=== PATIENT | female | born 1975 | race African-American/Black ===

== ENCOUNTER 2021-06-02 21:04 | Observation (INO) | payer OTHER ==
[2021-06-02] MEDS ORDERED: PANTOPRAZOLE 40 MG/10 ML VIAL IVP STA (21:28)
[2021-06-02] MEDS ORDERED: MORPHINE SULFATE 4 MG/ML SYRINGE IV STA (21:28)
--- NOTE | 2021-06-02 21:51 | XR ---
EXAMINATION TYPE: XR chest 1V portable DATE OF EXAM: 06/02/2021 9:43 PM COMPARISON:None TECHNIQUE: XR chest 1V portable Frontal view of the chest. CLINICAL INDICATION:Female, 46 years old with history of abdominal pain; FINDINGS: Lungs/Pleura: There is no evidence of pleural effusion, focal consolidation, or pneumothorax. Pulmonary vascularity: Unremarkable. Heart/mediastinum: Cardiomediastinal silhouette is unremarkable. Musculoskeletal: No acute osseous pathology. IMPRESSION: No acute cardiopulmonary disease/process.
--- NOTE | 2021-06-02 21:53 | XR ---
EXAMINATION TYPE: XR KUB DATE OF EXAM: 06/02/2021 9:43 PM INDICATION: Patient age:Female; 46 years old; Reason for study: abdominal pain; COMPARISON: None. TECHNIQUE: One radiographic view of the abdomen was obtained. FINDINGS: Multiple gas-filled loops of bowel; are seen throughout the abdomen. No convincing evidence for obstruction. There is stool seen within the rectum and sigmoid colon. Pelvic phleboliths are pre sent. Mild degenerative changes of the spine. IMPRESSION: Gas-filled loops of colon seen throughout abdomen are nonspecific.
[2021-06-02 22:15] LABS: Basophils % (A) 0 %; Eosinophils # (A) 0.3 k/uL (0-0.7); Eosinophils % (A) 3 %; HCT 35.1 % (34.0-46.0); HGB 11.4 gm/dL (11.4-16.0); Lymphocytes # (A) 1.9 k/uL (1.0-4.8); Lymphocytes % (A) 21 %; MCH 32.1 pg (25.0-35.0); MCHC 32.4 g/dL (31.0-37.0); MCV 98.8 fL (80.0-100.0); Mean Platelet Volume 7.8; Monocytes # (A) 0.5 k/uL (0-1.0); Monocytes % (A) 5 %; Neutrophils # (A) 6.1 k/uL (1.3-7.7); Neutrophils % (A) 68 %; Platelet Count 276 k/uL (150-450); RBC 3.55 m/uL (3.80-5.40); RDW 14.4 % (11.5-15.5)
[2021-06-02 22:17] LABS: Appearance,Urine Clear (Clear); Bilirubin,Urine Negative (Negative); Blood,Urine Negative (Negative); Color,Urine Yellow; Glucose,Urine (UA) Negative (Negative); Ketones,Urine Trace (Negative); Leukocyte Esterase,Urine Negative (Negative); Nitrite,Urine Negative (Negative); PH, Urine 8.5 (5.0-8.0); Protein,Urine Trace (Negative); Specific Gravity,Urine 1.029 (1.001-1.035); Urobilinogen,Urine <2.0 mg/dL (<2.0)
[2021-06-02 22:28] LABS: ALT 84 U/L (4-34); AST 47 U/L (14-36); African American GFR (CKD) >90 (>60 ml/min/1.73 sqM); Albumin 4.2 g/dL (3.5-5.0); Alcohol <10 mg/dL; Alkaline Phosphatase 80 U/L (38-126); Amylase 144 U/L (30-110); Anion Gap 7 mmol/L; Blood Urea Nitrogen 18 mg/dL (7-17); Calcium 11.4 mg/dL (8.4-10.2); Carbon Dioxide 31 mmol/L (22-30); Chloride 98 mmol/L (98-107); Glucose 79 mg/dL (74-99); Lipase 336 U/L (23-300); Non-African American GFR(CKD) >90 (>60 ml/min/1.73 sqM); Potassium 4.1 mmol/L (3.5-5.1); Sodium 136 mmol/L (137-145); Total Bilirubin 0.5 mg/dL (0.2-1.3); Total Protein 6.9 g/dL (6.3-8.2)
[2021-06-02] MEDS ORDERED: MORPHINE SULFATE 4 MG/ML SYRINGE IVP STA (22:40)
[2021-06-02 22:44] LABS: Prothrombin Time 10.6 sec (9.0-12.0)
[2021-06-02 22:50] LABS: Partial Thromboplastin Time 20.8 sec (22.0-30.0)
--- NOTE | 2021-06-02 23:29 | CT ---
EXAMINATION TYPE: CT abdomen pelvis w con DATE OF EXAM: 06/02/2021 COMPARISON: None HISTORY: abd disstenton CT DLP: 459.3 mGycm Automated exposure control for dose reduction was used. CONTRAST: Performed with IV Contrast, patient injected with 95 mL of Isovue 300. Images obtained from the diaphragm to the floor of the pelvis with IV contrast. There is some mild subsegmental atelectasis at the lung bases. Heart size is normal. There is no phyllis cardial effusion. There is no pleural effusion. Liver spleen appear intact. The bile ducts are not di lated. There is no evidence of pancreatic mass. Stomach is intact. There is no adrenal mass. Kidneys show satisfactory contrast opacification. There is no hydronephrosis. Ureters are not dilated. There is no retroperitoneal adenopathy. Bladder distends smoothly. There is retained fecal material in the large bowel. There is intramural air in the right colon. Larg e bowel is moderately dilated on the right side and the cecum measures 7.6 cm. Small bowel is not dil ated. There is no free air. Lumbar vertebrae have normal alignment. Posterior elements are intact. [place] pelvis is intact. The hip joints are intact. IMPRESSION: There is intramural air in the right colon which is somewhat dilated. Fluid level seen in the transve rse colon and descending colon. There is retained fecal material in the distal colon. The appearance is nonspecific and could relate to nonspecific colitis. There is no significant wall thickening or in traperitoneal fluid seen to suggest a serious condition such as ischemic colitis. Constipation.
[2021-06-02] MEDS ORDERED: SODIUM CHLORIDE 0.9% 1,000 ML IV STA (23:47)
--- NOTE | 2021-06-02 23:50 | ED ---
General Adult HPI - General Chief complaint: Abdominal Pain Stated complaint: Abdominal Pain Time Seen by Provider: 06/02/21 21:13 Source: patient, EMS, RN notes reviewed, old records reviewed Mode of arrival: EMS Limitations: no limitations - History of Present Illness Initial comments: Patient is a 46-year-old female with past medical history remarkable for alcohol abuse, presents emergency Department complaining of abdominal distention and pain that has been ongoing for the last week but worsened over the last 1-2 days. Endorses diarrhea that is nonbloody. Denies any nausea or vomiting. Endorses abdominal distention. Denies any chest pain, shortness of breath. Denies any urinary complaints at this time. States she is not . Pres ents over concern for abdominal discomfort as well as the diarrhea. She does state that the pain does seem to be focal around the epigastric region with some radiation straight through to her back.Denies any fevers, chills, sick contacts. - Related Data Home Medications Medication Instructions Recorded Confirmed Acetaminophen [Tylenol 8 Hour] 650 mg PO Q4H PRN 06/02/21 06/02/21 Budesonide/Formoterol Fumarate 1 puff INHALATION RT-BID 06/02/21 06/02/21 [Symbicort 160-4.5 Mcg Inhaler] Calc/Magne/Zinc/Vitam D 1 tab PO TID PRN 06/02/21 06/02/21 Chlorpheniramine Maleate 4 mg PO Q4H PRN 06/02/21 06/02/21 [Chlor-Trimeton] Divalproex [Depakote] 250 mg PO TID 06/02/21 06/02/21 Famotidine [Pepcid] 20 mg PO BID PRN 06/02/21 06/02/21 Fluticasone Nasal [place] [Flonase 1 spray EA NOSTRIL DAILY 06/02/21 06/02/21 Nasal [place]] Ibuprofen [Motrin Ib] 600 mg PO Q6H PRN 06/02/21 06/02/21 [place] Carbonate See Taper PO TID 06/02/21 06/02/21 Multivitamins, Thera [Multivitamin 1 tab PO DAILY 06/02/21 06/02/21 (formulary)] QUEtiapine [SEROquel] 25 mg PO BID@0800,1700 06/02/21 06/02/21 QUEtiapine [SEROquel] 50 mg PO HS 06/02/21 06/02/21 Thiamine HCl [Vitamin B-1] 100 mg PO DAILY 06/02/21 06/02/21 busPIRone HCl [Buspar] 10 mg PO TID 06/02/21 06/02/21 cloNIDine HCL [Catapres] 0.1 - 0.3 mg PO Q4H PRN MDD OVER 06/02/21 06/02/21 160/100 metFORMIN HCL 500 mg PO BID 06/02/21 06/02/21 ondansetron HCL [Zofran] 8 mg PO Q6H PRN 06/02/21 06/02/21 Allergies Allergy/AdvReac Type Severity Reaction Status Date / Time aspirin AdvReac Itching Verified 06/02/21 21:25 Review of Systems ROS Statement: Those systems with pertinent positive or pertinent negative responses have been documented in the HPI. Review of Systems: CONST: Denies fever EYES: Denies blurry vision ENT: Denies nasal congestion C/V: Denies Chest pain RESP: Denies shortness of breath GI: Endorses abdominal pain : Denies dysuria SKIN: Denies rash. MSK: Denies joint pain. NEURO: Denies headache ROS Other: All systems not noted in ROS Statement are negative. Past Medical History Past Medical History: Asthma, Diabetes Mellitus, Liver Disease, Renal Disease Past Surgical History: Hysterectomy Smoking Status: Never smoker Past Alcohol Use History: Daily Past Drug Use History: Cocaine, Marijuana General Exam - General Exam Comments Initial Comments: General: Appears in no acute distress. HEAD: Normal with no signs of head trauma. EYES: PERRLA, EOMI, conjunctiva normal, no discharge. ENT: Hearing grossly intact, normal oropharynx. RESPIRATORY: Clear breath sounds bilaterally. No wheezes, rales, or rhonchi. C/V: Regular rate and rhythm. S1 and S2 auscultated, no edema, peripheral pulses 2+ and intact throughout ABD: Abdomen soft, mildly distended. Patient is tender to palpation diffusely, primarily over the epigastric region. No rebound tenderness. No guarding. EXT: Normal range of motion, no obvious deformity SKIN: No rashes or lesions observed on exposed skin. NEURO: Alert and oriented 4. Limitations: no limitations Course Vital Signs 06/02/21 06/02/21 21:08 23:30 Temperature 98.1 F Pulse Rate 67 79 Respiratory 18 18 Rate Blood Pressure 103/75 120/81 O2 Sat by Pulse 100 99 Oximetry Medical Decision Making - Medical Decision Making Based on the patient's presentation and physical exam, I'm concerned for acute abdominal process for the patient. We will obtain abdominal laboratory studies as well as the chest x-ray and KUB x-ray. Patient was in agreement this plan. She'll be given symptomatic treatment with IV fluids as well as IV analgesia. Laboratory studies are remarkable for what appears to be acute pancreatitis with mildly elevated amylase and lipase of 144 and 336. Urinalysis is unremarkable. Lactate is wnl. The remainder of the labs are unremarkable. X-rays reveal gas- filled colon seen throughout the abdomen that are nonspecific as well as no acute cardiopulmonary process on chest x-ray. On reevaluation, patient is feeling slightly improved, however still complaining of abdominal pain. She'll be given additional analgesia, as well as started on insulin drip. Patient was in agreement this plan. CT imaging revealed findings consistent with colitis. No findings to suggest a serious condition such as ischemic colitis. On reevaluation, I discussed with her that appear she has acute pain as well as colitis. I believe it is best to admit her to the hospital for IV fluids and analgesia. She was in agreement this plan. Spoke with the admitting physician, Dr. Rich [facility] accept the patient. Patient w as therefore admitted in stable condition. Per Dr. Rich, patient will be started on IV cipro/flagyl and Dr. Rodriguez will be consulted of ID for colitis. - Lab Data Result diagrams: 06/02/21 21:55 06/02/21 21:55 Lab Results 06/02/21 06/02/21 06/02/21 Range/Units 21:55 21:55 21:55 WBC 9.0 (3.8-10.6) k/uL RBC 3.55 L (3.80-5.40) m/uL Hgb 11.4 (11.4-16.0) gm/dL Hct 35.1 (34.0-46.0) % MCV 98.8 (80.0-100.0) fL MCH 32.1 (25.0-35.0) pg MCHC 32.4 (31.0-37.0) g/dL RDW 14.4 (11.5-15.5) % Plt Count 276 (150-450) k/uL MPV 7.8 Neutrophils % 68 % Lymphocytes % 21 % Monocytes % 5 % Eosinophils % 3 % Basophils % 0 % Neutrophils # 6.1 (1.3-7.7) k/uL Lymphocytes # 1.9 (1.0-4.8) k/uL Monocytes # 0.5 (0-1.0) k/uL Eosinophils # 0.3 (0-0.7) k/uL Basophils # 0.0 (0-0.2) k/uL PT 10.6 (9.0-12.0) sec INR 1.0 (<1.2) APTT 20.8 L (22.0-30.0) sec Sodium (137-145) mmol/L Potassium (3.5-5.1) mmol/L Chloride (98-107) mmol/L Carbon Dioxide (22-30) mmol/L Anion Gap mmol/L BUN (7-17) mg/dL Creatinine (0.52-1.04) mg/dL Est GFR (CKD-EPI)AfAm (>60 ml/min/1.73 sqM) Est GFR (CKD-EPI)NonAf (>60 ml/min/1.73 sqM) Glucose (74-99) mg/dL Plasma Lactic Acid Federico (0.7-2.0) mmol/L Calcium (8.4-10.2) mg/dL Total Bilirubin (0.2-1.3) mg/dL AST (14-36) U/L ALT (4-34) U/L Alkaline Phosphatase (38-126) U/L Total Protein (6.3-8.2) g/dL Albumin (3.5-5.0) g/dL Amylase (30-110) U/L Lipase (23-300) U/L Urine Color Yellow Urine Appearance Clear (Clear) Urine pH 8.5 H (5.0-8.0) Ur Specific [place] 1.029 (1.001-1.035) Urine Protein Trace H (Negative) Urine Glucose (UA) Negative (Negative) Urine Ketones Trace H (Negative) Urine Blood Negative (Negative) Urine Nitrite Negative (Negative) Urine Bilirubin Negative (Negative) Urine Urobilinogen <2.0 (<2.0) mg/dL Ur Leukocyte Esterase Negative (Negative) Serum Alcohol mg/dL 06/02/21 06/02/21 Range/Units 21:55 21:55 WBC (3.8-10.6) k/uL RBC (3.80-5.40) m/uL Hgb (11.4-16.0) gm/dL Hct (34.0-46.0) % MCV (80.0-100.0) fL MCH (25.0-35.0) pg MCHC (31.0-37.0) g/dL RDW (11.5-15.5) % Plt Count (150-450) k/uL MPV Neutrophils % % Lymphocytes % % Monocytes % % Eosinophils % % Basophils % % Neutrophils # (1.3-7.7) k/uL Lymphocytes # (1.0-4.8) k/uL Monocytes # (0-1.0) k/uL Eosinophils # (0-0.7) k/uL Basophils # (0-0.2) k/uL PT (9.0-12.0) sec INR (<1.2) APTT (22.0-30.0) sec Sodium 136 L (137-145) mmol/L Potassium 4.1 (3.5-5.1) mmol/L Chloride 98 (98-107) mmol/L Carbon Dioxide 31 H (22-30) mmol/L Anion Gap 7 mmol/L BUN 18 H (7-17) mg/dL Creatinine 0.67 (0.52-1.04) mg/dL Est GFR (CKD-EPI)AfAm >90 (>60 ml/min/1.73 sqM) Est GFR (CKD-EPI)NonAf >90 (>60 ml/min/1.73 sqM) Glucose 79 (74-99) mg/dL Plasma Lactic Acid [place] 1.9 (0.7-2.0) mmol/L Calcium 11.4 H (8.4-10.2) mg/dL Total Bilirubin 0.5 (0.2-1.3) mg/dL AST 47 H (14-36) U/L ALT 84 H (4-34) U/L Alkaline Phosphatase 80 (38-126) U/L Total Protein 6.9 (6.3-8.2) g/dL Albumin 4.2 (3.5-5.0) g/dL Amylase 144 H (30-110) U/L Lipase 336 H (23-300) U/L Urine Color Urine Appearance (Clear) Urine pH (5.0-8.0) Ur Specific [place] (1.001-1.035) Urine Protein (Negative) Urine Glucose (UA) (Negative) Urine Ketones (Negative) Urine Blood (Negative) Urine Nitrite (Negative) Urine Bilirubin (Negative) Urine Urobilinogen (<2.0) mg/dL Ur Leukocyte Esterase (Negative) Serum Alcohol <10 mg/dL Disposition Clinical Impression: Acute pancreatitis, Colitis Disposition: ADMITTED IP TO THIS [facility] Condition: Stable Referrals: Nonstaff,Physician [Primary Care Provider] - 1-2 days
[2021-06-02] MEDS ORDERED: ONDANSETRON 4 MG/2 ML VIAL IVP PRN (23:57)
[2021-06-02] MEDS ORDERED: NALOXONE 0.4 MG/ML 1 ML VIAL IV PRN (23:57)
[2021-06-03] MEDS: metroNIDAZOLE-NS PMX 500 MG in SALINE 1 100ML.BAG IVPB SCH ×2 (00:50→08:26)
[2021-06-03] MEDS ORDERED: LEVOFLOXACIN 250MG-D5W PMX 250 MG in DEXTROSE/WATER 1 50ML.BAG IVPB SCH (01:00)
[2021-06-03 07:33] LABS: Basophils # (A) 0.1 k/uL (0-0.2); Basophils % (A) 1 %; Eosinophils # (A) 0.3 k/uL (0-0.7); Eosinophils % (A) 3 %; HGB 11.6 gm/dL (11.4-16.0); Lymphocytes # (A) 1.3 k/uL (1.0-4.8); Lymphocytes % (A) 15 %; MCHC 31.4 g/dL (31.0-37.0); MCV 102.1 fL (80.0-100.0); Macrocytosis Slight; Mean Platelet Volume 8.2; Monocytes # (A) 0.5 k/uL (0-1.0); Monocytes % (A) 5 %; Neutrophils # (A) 6.5 k/uL (1.3-7.7); Neutrophils % (A) 75 %; Platelet Count 283 k/uL (150-450); RBC 3.62 m/uL (3.80-5.40); RDW 14.3 % (11.5-15.5); WBC 8.6 k/uL (3.8-10.6)
[2021-06-03 07:51] LABS: ALT 76 U/L (4-34); AST 41 U/L (14-36); African American GFR (CKD) >90 (>60 ml/min/1.73 sqM); Albumin 3.8 g/dL (3.5-5.0); Alkaline Phosphatase 69 U/L (38-126); Anion Gap 3 mmol/L; Blood Urea Nitrogen 11 mg/dL (7-17); Calcium 10.2 mg/dL (8.4-10.2); Carbon Dioxide 31 mmol/L (22-30); Chloride 100 mmol/L (98-107); Glucose 75 mg/dL (74-99); Non-African American GFR(CKD) >90 (>60 ml/min/1.73 sqM); Sodium 134 mmol/L (137-145); Total Bilirubin 0.6 mg/dL (0.2-1.3); Total Protein 6.5 g/dL (6.3-8.2)
[2021-06-03 07:58] VITALS: BP 91/57; PULSE 64; RESP 16; TEMP 97.8
[2021-06-03] MEDS ORDERED: QUEtiapine 25 MG TAB PO SCH (08:00)
[2021-06-03] MEDS ORDERED: SYMBICORT 160-4.5 MCG INHALER INHALATION SCH (08:00)
[2021-06-03 08:06] LABS: Glucose,Whole Blood 88 mg/dL (75-99)
[2021-06-03] MEDS ORDERED: KETOROLAC 15 MG/ML 1 ML VIAL IVP PRN (08:39)
[2021-06-03] MEDS ORDERED: metFORMIN 500 MG TAB PO SCH (09:00)
[2021-06-03] MEDS ORDERED: THIAMINE 100 MG TAB PO SCH (09:00)
[2021-06-03] MEDS ORDERED: FAMOTIDINE 20 MG TAB PO PRN (09:00)
[2021-06-03] MEDS ORDERED: DIVALPROEX 250 MG TABLET.DR PO SCH (09:00)
[2021-06-03] MEDS ORDERED: busPIRone HCl 10 MG TAB PO SCH (09:00)
[2021-06-03 12:01] LABS: Glucose,Whole Blood 96 mg/dL (75-99)
[2021-06-03] MEDS ORDERED: ACETAMINOPHEN TAB 325 MG TAB PO PRN (13:35)
[2021-06-03] MEDS ORDERED: PANTOPRAZOLE 40 MG/10 ML VIAL IVP SCH (13:45)
--- NOTE | 2021-06-03 17:12 | P.HPIM ---
History of Present Illness Patient was on-year-old female with alcohol abuse was sent in from [facility] facility for epigastric abdominal pain. Patient lipase is minimally elevated to around 350 because of which patient is admitted with concerns of pancreatitis. Patient's pain completely resolved and patient is able to tolerate liquid diet well and I'm advancing the diet today. Patient does have mildly elevated liver enzymes seconded to alcoholism. Patient denied any IV drug use in the past. Hepatocellular was ordered but results will not be available before her discharge. His symptoms improved she is tolerating diet patient will be discharged today. REVIEW OF SYSTEMS: CONSTITUTIONAL: No fever, no malaise, no fatigue. HEENT: No recent visual problems or hearing problems. Denied any sore throat. CARDIOVASCULAR: No chest pain, orthopnea, PND, no palpitations, no syncope. PULMONARY: No shortness of breath, no cough, no hemoptysis. GASTROINTESTINAL: As mentioned in HPI NEUROLOGICAL: No headaches, no weakness, no numbness. HEMATOLOGICAL: Denies any bleeding or petechiae. GENITOURINARY: Denies any burning micturition, frequency, or urgency. MUSCULOSKELETAL/RHEUMATOLOGICAL: Denies any joint pain, swelling, or any muscle pain. ENDOCRINE: Denies any polyuria or polydipsia. The rest of the 14-point review of systems is negative. PHYSICAL EXAMINATION: GENERAL: The patient is alert and oriented x3, not in any acute distress. Well developed, well nourished. HEENT: Pupils are round and equally reacting to light. EOMI. No scleral icterus. No conjunctival pallor. Normocephalic, atraumatic. No pharyngeal erythema. No thyromegaly. CARDIOVASCULAR: S1 and S2 present. No murmurs, rubs, or gallops. PULMONARY: Chest is clear to auscultation, no wheezing or crackles. ABDOMEN: Soft, nontender, nondistended, normoactive bowel sounds. No palpable organomegaly. MUSCULOSKELETAL: No joint swelling or deformity. EXTREMITIES: No cyanosis, clubbing, or pedal edema. NEUROLOGICAL: Gross neurological examination did not reveal any focal deficits. SKIN: No rashes. Assessment and plan -Epigastric abdominal pain probably seconded alcoholic gastritis and lipase is not having to sit an keratitis and the CT of the abdomen is not consistent with an keratitis clinically patient doesn't have any evidence of colitis although there was suspicion on the computed tomography scan. Patient did have a bowel movement. Patient was constipated yesterday. Patient was taking nonsteroidal anti-disorder medications at home this will be discontinued. If needed if patient can use either tramadol or [place] -Transaminitis: Liver enzymes are minimally elevated. Patient is on Depakote. Patient has highly ALT than AST this can be drug induced. Since is only minimally elevated disease and would repeat the liver enzymes as an outpatient before discontinuing any of her medications. -Type 2 diabetes mellitus -history of cocaine abuse and marijuana use in the past -Alcohol abuse patient is presently in rehabilitation Patient is being discharged today Past Medical History Past Medical History: Asthma, Diabetes Mellitus, Liver Disease, Renal Disease History of Any Multi-Drug Resistant Organisms: None Reported Past Surgical History: Hysterectomy Smoking Status: Never smoker Past Alcohol Use History: Daily Past Drug Use History: Cocaine, Marijuana Medications and Allergies Home Medications Medication Instructions Recorded Confirmed Type Acetaminophen [Tylenol 8 Hour] 650 mg PO Q4H PRN 06/02/21 06/02/21 History Budesonide/Formoterol Fumarate 1 puff INHALATION RT-BID 06/02/21 06/02/21 History [Symbicort 160-4.5 Mcg Inhaler] Calc/Magne/Zinc/Vitam D 1 tab PO TID PRN 06/02/21 06/02/21 History Chlorpheniramine Maleate 4 mg PO Q4H PRN 06/02/21 06/02/21 History [Chlor-Trimeton] Divalproex [Depakote] 250 mg PO TID 06/02/21 06/02/21 History Fluticasone Nasal [place] [Flonase 1 spray EA NOSTRIL DAILY 06/02/21 06/02/21 History Nasal [place]] [place] Carbonate See Taper PO TID 06/02/21 06/02/21 History Multivitamins, Thera [Multivitamin 1 tab PO DAILY 06/02/21 06/02/21 History (formulary)] QUEtiapine [SEROquel] 25 mg PO BID@0800,1700 06/02/21 06/02/21 History QUEtiapine [SEROquel] 50 mg PO HS 06/02/21 06/02/21 History Thiamine HCl [Vitamin B-1] 100 mg PO DAILY 06/02/21 06/02/21 History busPIRone HCl [Buspar] 10 mg PO TID 06/02/21 06/02/21 History metFORMIN HCL 500 mg PO BID 06/02/21 06/02/21 History ondansetron HCL [Zofran] 8 mg PO Q6H PRN 06/02/21 06/02/21 History Pantoprazole [Protonix] 40 mg PO DAILY #14 tab 06/03/21 Rx Allergies Allergy/AdvReac Type Severity Reaction Status Date / Time aspirin AdvReac Itching Verified 06/02/21 21:25 Physical Exam Vitals: Vital Signs Temp Pulse Pulse Resp BP BP Pulse Ox 06/03/21 08:00 64 16 06/03/21 07:00 97.8 F 64 16 91/57 100 06/03/21 03: 98.5 F 69 18 94/55 98 06/03/21 01:43 60 18 138/65 98 06/02/21 23:30 79 18 120/81 99 06/02/21 21:08 98.1 F 67 18 103/75 100 Intake and Output 06/03/21 06/03/21 06/03/21 06:59 14:59 22:59 Intake Total 490 Balance 490 Intake: Oral 490 Other: Voiding Method Toilet # Voids 2 Weight 43.091 kg Results CBC & Chem 7: 06/03/21 06:54 06/03/21 06:54 Labs: Abnormal Lab Results - Last 24 Hours (Table) 06/02/21 06/02/21 06/02/21 Range/Units 21:55 21:55 21:55 RBC 3.55 L (3.80-5.40) m/uL MCV (80.0-100.0) fL APTT 20.8 L (22.0-30.0) sec Sodium (137-145) mmol/L Carbon Dioxide (22-30) mmol/L BUN (7-17) mg/dL Calcium (8.4-10.2) mg/dL AST (14-36) U/L ALT (4-34) U/L Amylase (30-110) U/L Lipase (23-300) U/L Urine pH 8.5 H (5.0-8.0) Urine Protein Trace H (Negative) Urine Ketones Trace H (Negative) 06/02/21 06/03/21 06/03/21 Range/Units 21:55 06:54 06:54 RBC 3.62 L (3.80-5.40) m/uL MCV 102.1 H (80.0-100.0) fL APTT (22.0-30.0) sec Sodium 136 L 134 L (137-145) mmol/L Carbon Dioxide 31 H 31 H (22-30) mmol/L BUN 18 H (7-17) mg/dL Calcium 11.4 H (8.4-10.2) mg/dL AST 47 H 41 H (14-36) U/L ALT 84 H 76 H (4-34) U/L Amylase 144 H (30-110) U/L Lipase 336 H (23-300) U/L Urine pH (5.0-8.0) Urine Protein (Negative) Urine Ketones (Negative) Thrombosis Risk Factor Assmnt - Choose All That Apply Any of the Below Risk Factors Present?: Yes Each Factor Represents 1 point: Age 41-60 years Other Risk Factors: No Other congenital or acquired thrombophilia - If yes, enter type in comment: No Thrombosis Risk Factor Assessment Total Risk Factor Score: 1 Thrombosis Risk Factor Assessment Level: Low Risk
--- NOTE | 2021-06-03 17:12 | P.DS ---
Providers Date of admission: 06/02/21 23:57 Attending physician: Natalee Rich Consults: 06/02/21 23:57 Consult Physician Routine Consulting Provider: Joey Rodriguez Consult Reason/Comments: colitis Do you want consulting provider notified?: Yes Primary care physician: Physician Nonstaff Hospital Course: Please refer to history of present illness for further details Patient Condition at Discharge: Stable Plan - Discharge Summary Discharge Rx Participant: Yes New Discharge Prescriptions: New Pantoprazole [Protonix] 40 mg PO DAILY #14 tab Discontinued Famotidine [Pepcid] 20 mg PO BID PRN PRN Reason: Heartburn Ibuprofen [Motrin Ib] 600 mg PO Q6H PRN PRN Reason: Pain cloNIDine HCL [Catapres] 0.1 - 0.3 mg PO Q4H PRN MDD OVER 160/100 PRN Reason: Blood Pressure - High No Action QUEtiapine [SEROquel] 50 mg PO HS metFORMIN HCL 500 mg PO BID Fluticasone Nasal [place] [Flonase Nasal [place]] 1 spray EA NOSTRIL DAILY ondansetron HCL [Zofran] 8 mg PO Q6H PRN PRN Reason: Nausea Thiamine HCl [Vitamin B-1] 100 mg PO DAILY Acetaminophen [Tylenol 8 Hour] 650 mg PO Q4H PRN PRN Reason: Pain Multivitamins, Thera [Multivitamin (formulary)] 1 tab PO DAILY busPIRone HCl [Buspar] 10 mg PO TID Calc/Magne/Zinc/Vitam D 1 tab PO TID PRN PRN Reason: cramps QUEtiapine [SEROquel] 25 mg PO BID@0800,1700 Budesonide/Formoterol Fumarate [Symbicort 160-4.5 Mcg Inhaler] 1 puff INHALATION RT-BID [place] Carbonate See Taper PO TID Divalproex [Depakote] 250 mg PO TID Chlorpheniramine Maleate [Chlor-Trimeton] 4 mg PO Q4H PRN PRN Reason: Allergy Symptoms Discharge Medication List Acetaminophen [Tylenol 8 Hour] 650 mg PO Q4H PRN 06/02/21 [History] Budesonide/Formoterol Fumarate [Symbicort 160-4.5 Mcg Inhaler] 1 puff INHALATION RT-BID 06/02/21 [History] Calc/Magne/Zinc/Vitam D 1 tab PO TID PRN 06/02/21 [History] Chlorpheniramine Maleate [Chlor-Trimeton] 4 mg PO Q4H PRN 06/02/21 [History] Divalproex [Depakote] 250 mg PO TID 06/02/21 [History] Fluticasone Nasal [place] [Flonase Nasal [place]] 1 spray EA NOSTRIL DAILY 06/02/21 [History] [place] Carbonate See Taper PO TID 06/02/21 [History] Multivitamins, Thera [Multivitamin (formulary)] 1 tab PO DAILY 06/02/21 [Hist ory] QUEtiapine [SEROquel] 25 mg PO BID@0800,1700 06/02/21 [History] QUEtiapine [SEROquel] 50 mg PO HS 06/02/21 [History] Thiamine HCl [Vitamin B-1] 100 mg PO DAILY 06/02/21 [History] busPIRone HCl [Buspar] 10 mg PO TID 06/02/21 [History] metFORMIN HCL 500 mg PO BID 06/02/21 [History] ondansetron HCL [Zofran] 8 mg PO Q6H PRN 06/02/21 [History] Pantoprazole [Protonix] 40 mg PO DAILY #14 tab 06/03/21 [Rx] Follow up Appointment(s)/Referral(s): Nonstaff,Physician [Primary Care Provider] - 1-2 days Discharge Disposition: OTHER INSTITUTION NOT DEFINED
[2021-06-03 19:14] LABS: Hepatitis A Antibody IgM Nonreactive (Nonreactive); Hepatitis B Core IgM Nonreactive (Nonreactive); Hepatitis B Surface Antigen Nonreactive (Nonreactive); Hepatitis C IgG Antibody Nonreactive (Nonreactive)
[2021-06-03] MEDS ORDERED: QUEtiapine 50 MG TAB PO SCH (21:00)
--- NOTE | 2021-06-10 22:58 | P.CONS ---
History of Present Illness - Reason for Consult Consult date: 06/03/21 Colitis Requesting physician: Rachel Mishra - Chief Complaint Abdominal pain and diarrhea x few days - History of Present Illness Patient is a 46-year-old -[place] female with a past medical history sniffing for alcohol abuse patient presented to [facility] ER complaining of abdominal distention and pain that has been going on for about a week however has gotten worse for the last 1 to 2 days patient describes the pain to be more of a dull aching to sharp 6-7 out of 10 head no radiation patient complains of some nausea but no vomiting and did have some diarrhea but no blood or mucus in the stools with the symptoms the patient was evaluated by the ER physician on arrival to the ER patient was afebrile and no fever have been recorded subsequently patient did have a normal white count with no left shift kidney function has been normal liver enzymes are elevated amylase lipase was mildly elevated urine was negative blood culture obtained which are currently pending patient did have a CT of abdominal pelvis with evidence of fluid level in the transverse colon and descending colon appearance is nonspecific and could relate to nonspecific colitis patient was admitted to the hospital has been started on Levaquin and Flagyl infectious disease was consulted for further management of antibiotic therapy and there was no evidence of pancreatitis on the CT patient seem to be feeling better and wants to go home Review of Systems Positive point has been mentioned in the HPI rest of the systems are negative Past Medical History Past Medical History: Asthma, Diabetes Mellitus, Liver Disease, Renal Disease History of Any Multi-Drug Resistant Organisms: None Reported Past Surgical History: Hysterectomy Smoking Status: Never smoker Past Alcohol Use History: Daily Past Drug Use History: Cocaine, Marijuana Medications and Allergies Home Medications Medication Instructions Recorded Confirmed Type Acetaminophen [Tylenol 8 Hour] 650 mg PO Q4H PRN 06/02/21 06/02/21 History Budesonide/Formoterol Fumarate 1 puff INHALATION RT-BID 06/02/21 06/02/21 History [Symbicort 160-4.5 Mcg Inhaler] Calc/Magne/Zinc/Vitam D 1 tab PO TID PRN 06/02/21 06/02/21 History Chlorpheniramine Maleate 4 mg PO Q4H PRN 06/02/21 06/02/21 History [Chlor-Trimeton] Divalproex [Depakote] 250 mg PO TID 06/02/21 06/02/21 History Fluticasone Nasal [place] [Flonase 1 spray EA NOSTRIL DAILY 06/02/21 06/02/21 His tory Nasal [place]] [place] Carbonate See Taper PO TID 06/02/21 06/02/21 History Multivitamins, Thera [Multivitamin 1 tab PO DAILY 06/02/21 06/02/21 History (formulary)] QUEtiapine [SEROquel] 25 mg PO BID@0800,1700 06/02/21 06/02/21 History QUEtiapine [SEROquel] 50 mg PO HS 06/02/21 06/02/21 History Thiamine HCl [Vitamin B-1] 100 mg PO DAILY 06/02/21 06/02/21 History busPIRone HCl [Buspar] 10 mg PO TID 06/02/21 06/02/21 History metFORMIN HCL 500 mg PO BID 06/02/21 06/02/21 History ondansetron HCL [Zofran] 8 mg PO Q6H PRN 06/02/21 06/02/21 History Pantoprazole [Protonix] 40 mg PO DAILY #14 tab 06/03/21 Rx Allergies Allergy/AdvReac Type Severity Reaction Status Date / Time aspirin AdvReac Itching Verified 06/02/21 21:25 Physical Exam Vitals: Vital Signs Temp Pulse Pulse Resp BP BP Pulse Ox 06/03/21 08:00 64 16 06/03/21 07:00 97.8 F 64 16 91/57 100 06/03/21 03:23 98.5 F 69 18 94/55 98 06/03/21 01:43 60 18 138/65 98 06/02/21 23:30 79 18 120/81 99 06/02/21 21:08 98.1 F 67 18 103/75 100 Intake and Output 06/02/21 06/03/21 06/03/21 22:59 06:59 14:59 Intake Total 90 Balance 90 Intake: Oral 90 Other: Voiding Method Toilet # Voids 2 Weight 43.091 kg 43.091 kg GENERAL DESCRIPTION: Middle-aged female lying in bed, no distress. No tachypnea or accessory muscle of respiration use. HEENT: Shows Pallor , no scleral icterus. Oral mucous membrane is dry. No pharyngeal erythema or thrush NECK: Trachea central, no thyromegaly. LUNGS: Unlabored breathing. Clear to auscultation anteriorly. No wheeze or crackle. HEART: S1, S2, regular rate and rhythm. No loud murmur ABDOMEN: Soft, mild abdominal distention and tenderness , EXTREMITIES: No edema of feet. SKIN: No rash, no masses palpable. NEUROLOGICAL: The patient is awake, alert, oriented x3, mood and affect normal. Results CBC & Chem 7: 06/03/21 06:54 06/03/21 06:54 Labs: Abnormal Lab Results - Last 24 Hours (Table) 06/02/21 06/02/21 06/02/21 Range/Units 21:55 21:55 21:55 RBC 3.55 L (3.80-5.40) m/uL MCV (80.0-100.0) fL APTT 20.8 L (22.0-30.0) sec Sodium (137-145) mmol/L Carbon Dioxide (22-30) mmol/L BUN (7-17) mg/dL Calcium (8.4-10.2) mg/dL AST (14-36) U/L ALT (4-34) U/L Amylase (30-110) U/L Lipase (23-300) U/L Urine pH 8.5 H (5.0-8.0) Urine Protein Trace H (Negative) Urine Ketones Trace H (Negative) 06/02/21 06/03/21 06/03/21 Range/Units 21:55 06:54 06:54 RBC 3.62 L (3.80-5.40) m/uL MCV 102.1 H (80.0-100.0) fL APTT (22.0-30.0) sec Sodium 136 L 134 L (137-145) mmol/L Carbon Dioxide 31 H 31 H (22-30) mmol/L BUN 18 H (7-17) mg/dL Calcium 11.4 H (8.4-10.2) mg/dL AST 47 H 41 H (14-36) U/L ALT 84 H 76 H (4-34) U/L Amylase 144 H (30-110) U/L Lipase 336 H (23-300) U/L Urine pH (5.0-8.0) Urine Protein (Negative) Urine Ketones (Negative) Assessment and Plan Plan: 1patient presented to hospital with abdominal distention and diarrhea which is likely multifactorial in this patient who do have a history of significant alcohol drinking or drinks more than 1/5 a day, patient was complaining of some diarrhea CT finding has been nonspecific patient did not have any fever and a normal white count remained colitis to be less likely but not entirely excluded. 2we will obtain stool studies and stool for C. difficile. 3continue with empiric Levaquin and Flagyl while waiting for the cultures to be finalized. 4gentle IV fluids We will follow on clinical condition and cultures to further adjust medication if needed Thank you for this consultation will follow this patient along with you Time with Patient: Greater than 30
== END 2021-06-03 15:18 | disposition other institution (70) ==
LOC: EC 21:04 → 6NMEDSUR 23:57
PROVIDERS: ADMIT Hospitalist; ATTEND Hospitalist
DX: R10.13 Epigastric pain (principal); K59.00 Constipation, unspecified; R19.7 Diarrhea, unspecified; R11.0 Nausea; R14.0 Abdominal distension (gaseous); R94.8 Abnormal results of function studies of other organs and systems; R74.01 Elevation of levels of liver transaminase levels; E11.9 Type 2 diabetes mellitus without complications; F10.20 Alcohol dependence, uncomplicated; F14.10 Cocaine abuse, uncomplicated; J45.909 Unspecified asthma, uncomplicated; K76.9 Liver disease, unspecified; N28.9 Disorder of kidney and ureter, unspecified; Z79.51 Long term (current) use of inhaled steroids; Z79.899 Other long term (current) drug therapy; Z79.84 Long term (current) use of oral hypoglycemic drugs; Z88.6 Allergy status to analgesic agent; Z90.710 Acquired absence of both cervix and uterus
CPT/HCPCS: 96361; 96366; 96375 ×2; 96376; 96365; 96367; 99285; 36415; 80053 ×2; 80074; 82150; 83605; 83690; 85025 ×2; 85610; 85730; 81003; 87040; 71045; 74018; 74177; G0378; G0480; J2270; J1956; J1885; C9113; Q9967; 80320